=== PATIENT | female | born 2000 | race Caucasian/White ===

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

== ENCOUNTER 2022-04-02 22:59 | Inpatient (IN) | payer MEDICAID, OTHER ==
[2022-04-02] MEDS ORDERED: Misoprostol 200 MCG Tab PO PRN (23:26)
[2022-04-02] MEDS ORDERED: Sodium Chloride 0.9% 10 ML Syringe FLUSH PRN (23:26)
[2022-04-02] MEDS ORDERED: Methylergonovine 0.2 MG/1 ML Amp IM PRN (23:26)
[2022-04-02] MEDS ORDERED: Butorphanol 1 MG/ML SDV IVPUSH PRN (23:26)
[2022-04-02] MEDS ORDERED: Carboprost Tromethamine 250 MCG/1 ML Amp IM PRN (23:26)
[2022-04-02] MEDS ORDERED: Lidocaine 1% 50 ML MDV INJECT PRN (23:26)
[2022-04-02] MEDS ORDERED: Ondansetron 4 MG/2 ML SDV IVPUSH PRN (23:26)
[2022-04-02] MEDS ORDERED: Sodium Chloride 0.9% 2.5 ML Syringe FLUSH PRN (23:26)
[2022-04-02] MEDS ORDERED: Terbutaline 1 MG/ML SDV SUBCUT PRN (23:26)
[2022-04-02] MEDS ORDERED: Tranexamic Acid 1,000 MG in Sodium Chloride 0.9% 100 ML IV PRN (23:26)
[2022-04-02] MEDS ORDERED: Water For Irrigation,Sterile 1,000 ML Container IRR PRN (23:26)
[2022-04-02] MEDS ORDERED: Sodium Chloride 0.9% 20 ML SDV IV PRN (23:26)
[2022-04-02] MEDS ORDERED: Oxytocin/0.9 % Sodium Chloride 30 UNIT/500 ML BAG IV SCH ×2 (23:30)
[2022-04-03] MEDS ORDERED: Misoprostol 25 MCG (1/4 of 100 MCG) Tab VAG PRN ×2 (04:00)
[2022-04-03] MEDS: Lactated Ringers 1,000 ML IV SCH ×2 (07:15→08:42)
[2022-04-03] MEDS ORDERED: Ropivacaine/PF 400 MG/200 ML PCA ONE (08:17)
[2022-04-03] MEDS ORDERED: ePHEDrine 50 MG/ML SDV IVPUSH PRN (08:57)
[2022-04-03] MEDS ORDERED: Ropivacaine HCl/PF 400 MG in Premix Bag 1 BAG EPIDUR SCH (09:00)
[2022-04-03] MEDS ORDERED: Phenylephrine HCl In 0.9% NaCl 1 MG/10 ML Vial IVPUSH SCH (09:00)
[2022-04-03] MEDS ORDERED: Bisacodyl 10 MG Supp RECTAL PRN (18:12)
[2022-04-03] MEDS ORDERED: Lanolin 100% Cream 7 GM Tube TOP PRN (18:12)
[2022-04-03] MEDS ORDERED: Aluminum Hydroxide/Magnesium Hydroxide/Simethicone XS Susp 30 ML Cup PO PRN (18:12)
[2022-04-03] MEDS ORDERED: Acetaminophen 500 MG Tab PO PRN (18:12)
[2022-04-03] MEDS ORDERED: oxyCODONE 5 MG Tab PO PRN (18:12)
[2022-04-03] MEDS ORDERED: Ibuprofen 400 MG Tab PO PRN (18:12)
[2022-04-03] MEDS ORDERED: Benzocaine/Menthol 20%-0.5% Spray 78 GM Cannister TOP PRN (18:12)
[2022-04-03] MEDS: Witch Hazel Medicated Pads 40/Jar TOP PRN (20:51)
[2022-04-03] MEDS: Docusate Sodium 100 MG Cap PO PRN (20:52)
[2022-04-03] MEDS: Ibuprofen 800 MG Tab PO PRN (20:52)
[2022-04-03] MEDS: Acetaminophen 500 MG Tab PO PRN (20:53)
[2022-04-04] MEDS: Ibuprofen 800 MG Tab PO PRN ×3 (06:11→21:30)
[2022-04-04] MEDS: Acetaminophen 500 MG Tab PO PRN ×4 (06:12→23:46)
[2022-04-04] MEDS: Docusate Sodium 100 MG Cap PO PRN (09:58)
[2022-04-05] MEDS: Acetaminophen 500 MG Tab PO PRN (06:30)
[2022-04-05] MEDS: Ibuprofen 800 MG Tab PO PRN ×2 (06:31→12:04)
[2022-04-05] MEDS ORDERED: Citalopram 20 MG Tab PO ONE (10:25)
[2022-04-05] MEDS: Witch Hazel Medicated Pads 40/Jar TOP PRN (20:09)
[2022-04-05 23:49] VITALS: BP 119/71; PULSE 62
== END 2022-04-05 22:00 | disposition home or self-care (01) | DRG 807 ==
LOC: MW.OBCHECK 22:59 → MW.OB 22:59 → MW.OBCHECK 23:26 → MW.OB 23:27 → OBSVTOIN 04-03 18:12 → MW.OB 04-03 23:00
PROVIDERS: ADMIT Obstetrics & Gynecology; ATTEND Obstetrics & Gynecology
PROC: 3E0R3BZ Introduction of Anesthetic Agent into Spinal Canal, Percutaneous Approach (ICD-10-PCS; principal; 2022-04-03)
PROC: 10E0XZZ Delivery of Products of Conception, External Approach (ICD-10-PCS; 2022-04-03)
PROC: 00HU33Z Insertion of Infusion Device into Spinal Canal, Percutaneous Approach (ICD-10-PCS; 2022-04-03)
PROC: 0HQ9XZZ Repair Perineum Skin, External Approach (ICD-10-PCS; 2022-04-03)
PROC: 3E0P7VZ Introduction of Hormone into Female Reproductive, Via Natural or Artificial Opening (ICD-10-PCS; 2022-04-03)
DX: O48.0 Post-term pregnancy (principal); Z37.0 Single live birth; O70.0 First degree perineal laceration during delivery; Z3A.41 41 weeks gestation of pregnancy; Z20.822 Contact with and (suspected) exposure to COVID-19
CPT/HCPCS: 01967; 36415; 51702; 59025; 59409; 81001; 82803; 85014; 85018; 85027; 86592; 86850; 86900; 86901; A9270-GY; J0595; J2405; J2590; J2795; J7120; U0002

== ENCOUNTER 2023-05-17 19:18 | Emergency (ER) | payer MEDICAID, OTHER ==
[2023-05-17 20:42] VITALS: BP 105/69; PULSE 81
[2023-05-17] MEDS ORDERED: Ondansetron 4 MG Tab.DIS PO STA (21:06)
== END 2023-05-17 22:52 | disposition left against medical advice (07) ==
LOC: MW.ED 19:18
DX: O20.0 Threatened abortion (principal); Z88.0 Allergy status to penicillin; Z91.048 Other nonmedicinal substance allergy status
CPT/HCPCS: 76815; 76815-26; 99283; 99284

== ENCOUNTER 2023-11-27 01:38 | Emergency (ER) | payer MEDICAID, OTHER | END 2023-11-27 01:48 | disposition left against medical advice (07) | LOC: MW.ED 01:38 | DX: Z53.21 Procedure and treatment not carried out due to patient leaving prior to being seen by health care provider (principal) ==

== ENCOUNTER 2025-05-15 19:13 | Emergency (ER) | payer MEDICAID, OTHER ==
[2025-05-15 20:27] LABS: BASOPHILS ABSOLUTE AUTO 0.02 K/uL (0.00-0.20); BASOPHILS PERCENT AUTO 0.2 % (0.0-1.0); EOSINOPHILS ABSOLUTE AUTO 0.03 K/uL (0.00-0.45); EOSINOPHILS PERCENT AUTO 0.3 % (0.0-6.0); IMMATURE GRAN ABSOLUTE AUTO 0.04 K/uL (0.00-0.05); IMMATURE GRAN PERCENT AUTO 0.4 % (0.0-0.4); LYMPHOCYTES ABSOLUTE AUTO 1.86 K/uL (1.00-4.80); LYMPHOCYTES PERCENT AUTO 17.6 % (24.0-44.0); MEAN PLATELET VOLUME 10.2 fL (9.4-12.3); MONOCYTES ABSOLUTE AUTO 0.47 K/uL (0.00-0.80); MONOCYTES PERCENT AUTO 4.5 % (0.0-8.0); NEUTROPHILS ABSOLUTE AUTO 8.12 K/uL (1.80-7.70); NEUTROPHILS PERCENT AUTO 77.0 % (41.0-71.0); NRBC ABSOLUTE 0.00 K/uL (0.00-0.02); NRBC PERCENT 0.0 /100WBC (0.0-0.2); PLATELET COUNT,PLT 351 K/uL (150-400); RED BLOOD CELL COUNT 4.55 M/uL (4.10-5.30); WHITE BLOOD CELL COUNT,WBC 10.54 K/uL (3.9-11.3)
[2025-05-15 20:39] LABS: INR 1.23 (0.86-1.11); PTT,PARTIAL THROMBOPLSTIN TIME 25.4 SEC (23.9-30.7)
[2025-05-15 21:12] LABS: A/G RATIO 1.0 (0.9-1.6); ALANINE AMINOTRANSFERASE,ALT 11.0 IU/L (14-63); ASPARTATE AMNIOTRANSFERASE,AST 14.0 IU/L (15-37); BILIRUBIN TOTAL 0.4 mg/dL (0.2-1.0); BLOOD UREA NITROGEN,BUN 5.0 mg/dL (7.0-18.0); CARBON DIOXIDE,CO2 26.7 mmol/L (21.0-32.0); CHLORIDE,CL 102.0 mmol/L (98-107); CREATININE 0.6 mg/dL (0.6-1.0); EST CRCL DRUG DOSING (CG) 127.46 mL/min; GLUCOSE RANDOM 140.0 mg/dL (74-106); POTASSIUM,K 3.9 mmol/L (3.5-5.1); PROTEIN TOTAL,TP 7.1 g/dL (6.4-8.2); SODIUM,NA 136.0 mmol/L (136-145)
[2025-05-15 21:13] LABS: ESTIMATED GFR 130.0 mL/min (>60); HCG QUANTITATIVE 150688.0 mIU/mL
[2025-05-15 22:06] VITALS: BP 106/66; PULSE 73
== END 2025-05-15 22:36 | disposition home or self-care (01) ==
LOC: MW.ED 19:13
DX: O20.0 Threatened abortion (principal); Z88.0 Allergy status to penicillin; Z88.8 Allergy status to other drugs, medicaments and biological substances
CPT/HCPCS: 36415; 76817; 76817-26; 80053; 84702; 85025; 85610; 85730; 99283; 99284